=== PATIENT | male | born 1950 | race Caucasian/White ===

== ENCOUNTER → 2018-05-18 | Day surgery (SDC) | payer MEDICARE ==
[~2018-05-18] MED LIST: AVODART0.5 MG PO; COENZYME Q1050 MG; CRANBERRY200 MG; DEXAMETHASONE SOD PHOS INJ 4 MG/ML VIAL ONE; EPHEDRINE SULFATE INJ 50 MG/10 ML SYR ONE; FENTANYL CITRATE/PF 100MCG/2 ML INJ ONE; GLUCOSAMINE &1 EAC1; IOPAMIDOL 610MG/1ML 300 MG/ML VIAL IV ONE; KETOROLAC TROMETHAMINE 30 MG/ML VIAL ONE; LEVOFLOXACIN 500MG/D5W 100ML 100 ML IV ONE; LIDOCAINE HCL 2% LOCAL INJ 5 ML SDV VIAL INJ ONE; MELOXICAM7.5 MG PO; MIDAZOLAM HCL 2 MG/2 ML VIAL ONE; MYRBETRIQ25 MG; ONDANSETRON HCL INJ 2MG/ML 2ML 2 MG/ML VIAL ONE; POMEGRANATE; PROPOFOL IV EMULSION 10 MG/ML 20 ML VIAL ONE; RESVERATROL100 MG; SEVOFLURANE INHAL SOLN 250 ML PEN BTL ONE; TAMSULOSIN HCL0.4 MG; VITAMIN 3; [UNRECOGNIZED DRUG - OTHER]
--- OUTSIDE RECORDS SUMMARY | 2018-05-18 09:02 | XMS REPORT | Clinical Summary ---
Author Author [facility] Organization [facility] Address Unknown Phone Unavailable Care Team Providers Care Journeyman Electrician Pv Installer Name Role Phone Richard Mead MD PCP Allergies Comments Active Allergy Reactions Severity Noted Date Reaction unknown Sulfa (Sulfonamide 10/11/2017 Antibiotics) Medications End Date Status Medication Sig Dispensed Refills Start Date Active dutasteride (AVODART) 0.5 Take 0.5 mg 0 mg capsule by mouth daily. Active resveratrol 100 mg Take by 0 capsule mouth. Active om Take by 0 [id number] mouth. st (VIT 3) 500 mg-500 mcg -1 mg-12.5 mg capsule Active meloxicam (MOBIC) 7.5 mg Take 7.5 mg 0 tablet by mouth daily. Active NON FORMULARY Take 500 mg 0 by mouth daily. Tumeric acid Active pomegranate Take by 0 xt/bioflav,citrus mouth. (POMEGRANATE ORAL) Active glucosamine/chondro wolf Take by 0 A/C/Mn mouth. (GLUCOSAMINE-CHONDROITIN COMPLX ORAL) Active ubidecarenone (COENZYME Take by 0 Q10) 50 mg tablet mouth. Active mirabegron 25 mg tablet Take by 0 extended release 24 hr mouth. Active tamsulosin (FLOMAX) 0.4 Take 0.4 mg 0 mg capsule by mouth daily. Active Problems No known active problems Encounters Care Team Description Date Type Specialty Jeevan Flood MD Calculus of ureter 05/16/2018 Hospital Radiology Encounter Mattie Madrid MD 05/10/2018 Anesthesia General Surgery Event Jeevan Flood MD Eswl With Cysto With Insertion Of Stent 05/10/2018 Surgery General Surgery Jeevan Flood MD Preop testing 05/10/2018 Hospital General Surgery Encounter Jeevan Flood MD Preop testing (Primary Dx) 05/09/2018 Pre-Admit Pre-Admission Testing Testing Appointment Jeevan Flood MD Gross hematuria; Calculus of ureter 05/09/2018 Hospital Radiology Encounter Jeevan Flood MD Gross hematuria (Primary Dx); Calculus of ureter 05/09/2018 Transcribe Access Orders Arcadio Zamora MD Acute hip pain, right (Primary Dx) 03/23/2018 Office Visit Orthopedic Surgery Claus Perez MD Diverticulosis of large intestine without hemorrhage (Primary Dx); Gastritis without bleeding, unspecified chronicity, unspecified gastritis type; Helicobacter pylori (H. pylori) infection; Lymphocytic colitis; History of colon polyps; Family history of colon cancer 10/11/2017 Office Visit Gastroenterology after 05/17/2017 Family History Medical History Relation Name Comments Prostate cancer Father Hypertension Maternal Grandmother Hearing loss Mother Hypertension Mother Colon cancer Paternal Grandmother Ovarian cancer Sister Relation Name Status Comments Father Maternal Grandmother Mother Alive Paternal Grandmother Sister Social History Date Tobacco Use Types Packs/Day Years Used Light Tobacco Smoker Cigars Smokeless Tobacco: Never Used Comments: 1/month Alcohol Use Drinks/Week oz/Week Comments Yes 1 Glasses of 0.6 occ wine Sex Assigned at Date Recorded Not on file Industry Job Start Date Occupation Not on file Not on file Not on file Travel End Travel History Travel Start No recent travel history available. Last Filed Vital Signs Time Taken Vital Sign Reading 05/10/2018 4:00 PM [employer] Blood Pressure 130/60 05/10/2018 4:00 PM [employer]TE[employer]IAN Pulse 79 05/10/2018 4:00 PM [employer]INTENANCE ELECTRICIAN Temperature 36.1 C (96.9 F) 05/10/2018 4:00 PM [employer]TENAN[employer] E[employer]IAN Respiratory Rate 18 05/10/2018 4:00 PM [employer]INTENANCE ELECTRICIAN Oxygen Saturation 96% - Inhaled Oxygen - Concentration 05/10/2018 9:47 AM IND[employer] MAINTENANCE ELECTRICIAN Weight 98.8 kg (217 lb 12.8 oz) 05/10/2018 9:47 AM [employer] MAINTENANCE E[employer]RICIAN Height 185.4 cm (6' 1") 05/10/2018 9:47 AM [employer]INTENANCE ELECTRICIAN Body Mass Index 28.74 Plan of Treatment Health Maintenance Due Date Last Done Comments SHINGLES VACCINES (1 of 1998 2) PNEUMOCOCCAL 2013 POLYSACCHARIDE VACCINE AGE 65 AND OVER PNEUMOCOCCAL-13 2013 INFLUENZA VACCINE 11/17/2017 COLON CANCER SCREENING 10/31/2024 10/31/2014 Implants Device Identifier Shelf Expiration Date Model / Serial / Lot Implanted Type Area Manufactur er 11/15/2020 192 134 / / [id number] Stent [employer] [place] Ult 2drmtr 6fr Urological Left: Ureter, BSC 28cm Hydroplus W/O Gw - [id number] Implants [place] [facility] Implanted: 05/10/2018 (Quantity not or Sets on file) Procedures Comments Procedure Name Priority Date/Time Associated Diagnosis XR ABDOMEN 1 VW Routine 05/16/2018 Calculus of ureter 12:43 PM IND[employer]AL MAINTENANCE ELECTRICIAN WV AN ELECTIVE Routine 05/10/2018 SUPRAGLOTTIC AIRWAY 1:40 PM [employer]INTENANCE ELECTRICIAN Procedure Note - Leesa Blakely CRNA - 05/10/2018 1:40 PM [employer]TE[employer]IAN ANESTHESIA INTUBATION Date/Time: 05/10/2018 1:41 PM Performed by: Leesa Blakely CRNA Authorized by: Simona Wyatt MD Location: OR Urgency: Elective Difficult Airway: No Preoxygena liyah with 100% O2: Yes C-spine Precaution s Maintained Throughout : Yes Mask Ventilatio n: Easy mask Final Airway Type: Supraglott ic airway Final LMA: Classic LMA Size: 5 Number of Attempts at Approach: 1 ECG PRE/POST OP Routine 05/09/2018 Preop testing 4:28 PM [employer]INTENANCE ELECTRICIAN ESTIMATED GFR Routine 05/09/2018 3:34 PM [employer]INTE[employer]IAN PROSTATE SPECIFIC ANTIGEN Routine 05/09/2018 Preop testing 3:34 PM [employer]INTE[employer]NCE E[employer]RICIAN PROTHROMBIN TIME WITH INR Routine 05/09/2018 Preop testing 3:34 PM [employer]INTE[employer]IAN BASIC METABOLIC PANEL Routine 05/09/2018 Preop testing 3:34 PM [employer]INTE[employer] HC COMPLETE BLD COUNT Routine 05/09/2018 Preop testing W/AUTO DIFF 3:34 PM INDUSTRIAL MAINTE[employer] CT RENAL STONE PROTOCOL Routine 05/09/2018 Gross hematuria 12:08 PM [employer]INTENA[employer] E[employer]RICIAN Calculus of ureter XR HIP 2-3 VIEWS RIGHT Routine 03/23/2018 Acute hip pain, right 10:17 AM [employer]TENA[employer] E[employer]RICIAN XR PELVIS 1 OR 2 VW Routine 03/23/2018 Acute hip pain, right 10:12 AM [employer]INTENAN[employer] ELECTRICIAN after 05/17/2017 Results * XR Abdomen 1 Vw (05/16/2018 12:43 PM IND[employer]AL MAINTENANCE ELECTRICIAN) Narrative Performed At EXAMINATION:XR ABDOMEN 1 VW [facility] CLINICAL HISTORY:N20.1 Calculus of ureter COMPARISON:None FINDINGS: 1. The visualized lung bases are clear. 2. A left ureteral stent is in satisfactory position. Vague 0.9 cm density overlying the left L3 transverse process may represent the left proximal ureteral calculus which was identified on the May 09 CT scan. 2. There is no evidence of bowel obstruction or perforation. No acute osseous pathology. IMPRESSION: Left ureteral stent. [facility]-[id number] Procedure Note Interface, Radiology Results Incoming - 05/16/2018 2:20 PM [employer]INTE[employer] E[employer]RICIAN EXAMINATION: XR ABDOMEN 1 VW CLINICAL HISTORY: N20.1 Calculus of ureter COMPARISON: None FINDINGS: 1. The visualized lung bases are clear. 2. A left ureteral stent is in satisfactory position. Vague 0.9 cm density overlying the left L3 transverse process may represent the left proximal ureteral calculus which was identified on the May [address] scan. 2. There is no evidence of bowel obstruction or perforation. No acute osseous pathology. IMPRESSION: Left ureteral stent. [facility]-[id number] Performing Organization Address City/[facility] Cent[facility] Phone Number [facility] [address] [place] [address] * ECG Pre/Post Op (05/09/2018 4:28 PM IND[employer]RIAL MAINTENANCE ELECTRICIAN) Ventricular rate 76 [facility] Atrial rate 76 [facility] WV interval 172 [facility] QRSD interval 86 [facility] QT interval 366 [facility] QTC interval 411 [facility] P axis 1 27 [facility] QRS axis 1 46 [facility] T wave axis 59 [facility] EKG impression Normal sinus rhythm-Normal [facility] MUSE ECG-In automated comparison with ECG of 17-OCT-2014 13:28,-No significant change was found- Narrative Performed At Performing Organization Address City/[facility] Cent[facility]ode Phone Number [facility] MUSE [address] [place] [address] * Estimated GFR (05/09/2018 3:34 PM INDUSTRIAL MAINTENANCE ELECTRICIAN) Estimated GFR 68 mL/min/1.73 m2 [facility] Comment: [facility] CatergoryUnitsInte rpretation G1 >=90 Normal or high G2 60-89Mildly decreased [id number] Mildly to moderately decreased [id number] Moderately to severely decreased G4 15-29Severely decreased G5 <15Kidney failure The eGFR was calculated using the Chronic Kidney Disease Epidemiology Collaboration (CKD-EPI) equation. Interpretation is based on recommendations of the National Kidney Foundation-Kidney Disease Outcomes Quality Initiative (NKF-KDOQI) published in 2014. Specimen Plasma specimen Performing Organization Address City/[facility] Cent[facility]ode Phone Number [facility] [address] [place] [address] PATHOLOGY AND GENOMIC MEDICINE [address] * Prothrombin time with INR (05/09/2018 3:34 PM IND[employer]RIAL MAINTENANCE ELECTRICIAN) Prothrombin time 13.3 11.5 - 14.5 sec [facility] INR 1.04 [facility] Comment: [facility] For patients on anticoagulant therapy, reference ranges below: Indication: INR Value Treatment of Venous Thrombosis, 2.0-3.0 pulmonary emboli, or prophylaxis of a venous thrombosis, or systemic emboli. High dose, high risk patients 3.0-4.5 with mechanical valves. NOTE:INR values over 3.0 are sometimes associated with gastrointestinal hemorrhage, especially values over 4.0. Specimen Blood Performing Organization Address City/[facility]/Zipcode Phone Number [facility] [address] [place] [address] PATHOLOGY AND GENOMIC MEDICINE [address] * CBC with platelet and differential (05/09/2018 3:34 PM INDUSTRIAL MAINTENANCE ELECTRICIAN) WBC 7.1 4.2 - 11.0 k/uL [facility] RBC 4.21 4.04 - 5.86 m/uL [facility] HGB 13.1 13.0 - 17.3 g/dL [facility] HCT 41.3 34.0 - 45.0 % [facility] MCV 98.1 (H) 80.0 - 98.0 fL [facility] MCH 31.1 27.0 - 34.0 pg [facility] MCHC 31.7 31.5 - 36.5 g/dL [facility] RDW - SD 45.4 37.0 - 51.0 fL [facility] MPV 10.1 7.4 - 10.4 fL [facility] Platelet count 237 150 - 400 k/uL [facility] Nucleated RBC 0.00 /100 WBC [facility] Neutrophils 66.7 (H) 36.0 - 66.0 % [facility] Lymphocytes 24.8 24.0 - 44.0 % [facility] Monocytes 6.7 (H) 0.0 - 6.0 % [facility] Eosinophils 1.3 0.0 - 6.0 % [facility] Basophils 0.4 0.0 - 1.2 % [facility] Immature granulocytes 0.1 0.0 - 1.0 % [facility] Specimen Blood Performing Organization Address City/[facility]/Zipcode Phone Number [facility] [address] [place] [address] PATHOLOGY AND GENOMIC MEDICINE [address] * Prostate specific antigen (05/09/2018 3:34 PM INDUSTRIAL MAINTENANCE ELECTRICIAN) PSA 1.6 0.0 - 4.0 ng/mL [facility] Comment: HOSPITAL The DONA 8000 PSA immunoassay was used. Results obtained with different assay methods or kits should not be used interchangeably and may be different. Specimen Plasma specimen Performing Organization Address City/[facility]/Zipcode Phone Number [facility] DEPARTMENT [address] [place] [address] PATHOLOGY AND GENOMIC MEDICINE [address] * Basic metabolic panel (05/09/2018 3:34 PM INDUSTRIAL MAINTENANCE ELECTRICIAN) Sodium 141 135 - 150 mEq/L [facility] Potassium 3.8 3.5 - 5.0 mEq/L [facility] Chloride 101 98 - 112 mEq/L [facility] CO2 27 24 - 31 mmol/L [facility] Anion gap 13@ANIO 7 - 15 mEq/L [facility] BUN 19 (H) 7 - 18 mg/dL [facility] Creatinine 1.10 0.70 - 1.20 mg/dL [facility] Glucose 128 (H) 65 - 100 mg/dL [facility] Calcium 10.8 (H) 8.8 - 10.2 mg/dL [facility] Specimen Plasma specimen Performing Organization Address City/State/Zipcode Phone Number [facility] [place] Peterson Johnson [place] [id number] PATHOLOGY AND GENOMIC MEDICINE [facility] Myranda Peterson Johnson [address] * CT Renal Stone Protocol (05/09/2018 12:08 PM INDUSTRIAL MAINTENANCE ELECTRICIAN) Narrative Performed At EXAMINATION:CT RENAL STONE PROTOCOL [facility] CLINICAL HISTORY:R31.0 Gross hematuria, N20.1 Calculus of ureter, r31.0 n20.1 TECHNIQUE: Noncontrast images of the abdomen and pelvis were obtained without intravenous iodinated contrast. The lack of intravenous contrast limits assessment of the solid organs. CT imaging was performed with iterative reconstruction technique and/or automated exposure control to reduce radiation dose. COMPARISON: CT dated 04/02/2016 IMPRESSION: ABDOMEN: 1. Kidneys: 1 cm obstructing stone in the proximal third of the left ureter with moderate left hydronephrosis and mild perinephric stranding. No other renal or ureteral calculi. No right-sided hydronephrosis. 2. Liver: The liver is normal. No focal mass. 3. Gallbladder: The gallbladder is normal. 4. Spleen: The spleen is not enlarged. 5. Pancreas: The pancreas is unremarkable. 6. Adrenal Glands: The adrenal glands are unremarkable. 7. Abdominal Aorta: Calcification of the abdominal aorta is noted. No aneurysm. 8. Nodes: No enlarged retroperitoneal or mesenteric lymphadenopathy. 9. Bowel: No bowel obstruction or inflammatory changes of the large or small bowel. Diverticulosis. The appendix is normal. 10. Ascites: No ascites or fluid collections. PELVIS: 1.Pelvis: No mass, fluid collection or significant adenopathy. No bladder calculi. The prostate is enlarged. 2. Bones: Degenerative changes of the osseous structures. No suspicious lesions. 3. Lung Bases: Unremarkable SUMMARY: 1. 1 cm obstructing stone in the proximal left ureter with moderate left hydronephrosis and mild perinephric stranding. 2.Diverticulosis. 3.Prostatic enlargement. [facility]-[id number] Procedure Note [facility], Radiology Results Incoming - 05/09/2018 12:19 PM IND[employer] MAINTENANCE ELECTRICIAN EXAMINATION: CT RENAL STONE PROTOCOL CLINICAL HISTORY: R31.0 Gross hematuria, N20.1 Calculus of ureter, r31.0 n20.1 TECHNIQUE: Noncontrast images of the abdomen and pelvis were obtained without intravenous iodinated contrast. The lack of intravenous contrast limits assessment of the solid organs. CT imaging was performed with iterative reconstruction technique and/or automated exposure control to reduce radiation dose. COMPARISON: CT dated 04/02/2016 IMPRESSION: ABDOMEN: 1. Kidneys: 1 cm obstructing stone in the proximal third of the left ureter with moderate left hydronephrosis and mild perinephric stranding. No other renal or ureteral calculi. No right-sided hydronephrosis. 2. Liver: The liver is normal. No focal mass. 3. Gallbladder: The gallbladder is normal. 4. Spleen: The spleen is not enlarged. 5. Pancreas: The pancreas is unremarkable. 6. Adrenal Glands: The adrenal glands are unremarkable. 7. Abdominal Aorta: Calcification of the abdominal aorta is noted. No aneurysm. 8. Nodes: No enlarged retroperitoneal or mesenteric lymphadenopathy. 9. Bowel: No bowel obstruction or inflammatory changes of the large or small bowel. Diverticulosis. The appendix is normal. 10. Ascites: No ascites or fluid collections. PELVIS: 1. Pelvis: No mass, fluid collection or significant adenopathy. No bladder calculi. The prostate is enlarged. 2. Bones: Degenerative changes of the osseous structures. No suspicious lesions. 3. Lung Bases: Unremarkable SUMMARY: 1. 1 cm obstructing stone in the proximal left ureter with moderate left hydronephrosis and mild perinephric stranding. 2. Diverticulosis. 3. Prostatic enlargement. [facility]-[id number] Performing Organization Address City/[facility]ode Phone Number [facility] [address] [place] [address] * XR Hip 2-3 View Right (03/23/2018 10:17 AM INDUSTRIAL MAINTENANCE ELECTRICIAN) Narrative Performed At [facility] AP and lateral x-rays of the right hip show narrowing in the hip joint with moderate arthritis and a bone spur in the inferior aspect of the acetabulum Performing Organization Address [facility] Centercode Phone Number [facility] [address] [place] [address] * XR Pelvis 1 Or 2 Vw (03/23/2018 10:12 AM INDUSTRIAL MAINTENANCE ELECTRICIAN) Narrative Performed At [facility] Standing x-rays of the pelvis and hips show 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 For more information, zeny mata contact: Suman Boykin [address] [place] [address]
[2018-05-18 13:25] VITALS: BP 147/86
--- NOTE | 2018-05-18 14:24 | Operative Report ---
DATE OF PROCEDURE: May 18, 2018 PREOPERATIVE DIAGNOSES 1. Left mid-ureteral calculus, 10 x 3, opposite L3. 2. Left double-J stent. POSTOPERATIVE DIAGNOSES 1. Left mid-ureteral calculus, 10 x 3, opposite L3. 2. Left double-J stent. OPERATION 1. Left extracorporeal shock-wave lithotripsy with almost complete pulverization of the calculus. 2. Cystoscopy and stent removal. CARPENTER MATE: Dr. Marlo Zabala ANESTHETIC: General. 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 A CT scan showed a large, 11 x 11, calculus opposite L3. He underwent cystoscopy, stent placement and ESWL. Following KUB showed resistant long spread of stone about 10 x 3 at the same area. For this reason, he was brought back for repeat ESWL and stent removal. DESCRIPTION OF PROCEDURE: This patient was placed on the table in the supine position, and the stone was brought into position between F1 and F2 of the fluoroscopic monitor. The lithotripsy was then started, starting at 2 kV and slowly and gradually increased to 7 kV. Observation of the stone pulverization was done at 250 shocks intermittently. At 4,000 shocks, it was felt that the stone has completely pulverized and broke down. This patient was then placed on the table in the lithotomy position and was prepped and draped in a sterile manner. A #23-Gibraltarian cystoscope was used, and cystourethroscopy was performed. There were some calculi in the bladder. Under direct vision and fluoroscopic control, the tail end of the stent was grasped and removed completely. The bladder was drained. The patient tolerated the procedure well and was taken to the recovery room in satisfactory condition. Plans for this patient are to return to the office in about 6 weeks. He was discharged home on Macrobid 100 mg twice a day and Ultracet tablet 1 every 4 to 6 hours p.r.n. Job#: [id number]
== END | disposition home or self-care (01) ==
LOC: OR 08:59
PROVIDERS: ATTEND Specialist
DX: N20.1 Calculus of ureter (principal); Z46.6 Encounter for fitting and adjustment of urinary device; N21.0 Calculus in bladder; K21.9 Gastro-esophageal reflux disease without esophagitis; Z88.2 Allergy status to sulfonamides
CPT/HCPCS: 50590; 52310; 88300; J1100; J1885; J1956; J2001; J2250; J2405; J2704